=== PATIENT | female | born 1965 | race African-American/Black ===

== ENCOUNTER 2018-10-23 08:03 | Emergency (ER) | payer BC, OTHER ==
[2018-10-23] MEDS ORDERED: Ibuprofen 800 MG TAB ONE (08:25)
--- NOTE | 2018-10-23 08:50 | CT ---
CERVICAL SPINE CT NONCONTRAST: Date: 10/23/18 INDICATION: Neck injury with pain. FINDINGS: There is moderate multilevel degenerative change at the cervical spine with resultant straightening o f the cervical curvature. Craniocervical junction is intact, as is the cervicothoracic junction. IMPRESSION: No acute osseous abnormality of the cervical spine. POS: [facility]
== END 2018-10-23 08:50 | disposition home or self-care (01) ==
LOC: ERS 08:03
DX: S16.1XXA Strain of muscle, fascia and tendon at neck level, initial encounter (principal); V89.2XXA Person injured in unspecified motor-vehicle accident, traffic, initial encounter
CPT/HCPCS: 72125